=== PATIENT | male | born 1935 | race Caucasian/White ===

== ENCOUNTER 2019-07-23 05:41 | Emergency (ER) | payer MEDICARE, OTHER ==
[2019-07-23] MEDS ORDERED: Sodium Chloride 0.9% 1,000 ML IV SCH (06:30)
--- NOTE | 2019-07-23 06:32 | EDM.PDOC ---
ED HPI GENERAL MEDICAL PROBLEM - General Chief Complaint: Abdominal Pain Stated Complaint: RIGHT SIDE AND ABDOMINAL PAIN Time Seen by Provider: 07/23/19 05:51 Source of Information: Reports: Patient, Family () History Limitations: Reports: No Limitations - History of Present Illness INITIAL COMMENTS - FREE TEXT/NARRATIVE: Mr. Lowry is a very pleasant 83-year-old man with a past medical history significant for COPD and prostate cancer, status post a partial prostatectomy and radiation therapy. He states that he has been experiencing a burning pain felt across his lower abdomen on off for the past 3 days. He states that he has not been able to sleep for the past 2 nights because of the pain. The pain is present if he doesn't move, and relieved briefly if he does move. He has not had any fever, nausea, vomiting, or diarrhea. He states that he has felt constipated since 07/19/2019, but that he had a hard bowel movement yesterday. The bowel movement did not relieve his symptoms. He also has felt gassy, and feels brief relief if he belches or passes gas. His mentioned that his belches smell really bad. No urinary symptoms. The patient states that he still feels the pain across his lower abdomen, but that it became worse in his right lower quadrant last night. The pain in that location is now "solid" in character. That pain is also felt better if he moves. No prior similar symptoms. The patient's PCP is Dr. Andie Cullen, in [place], [place]. Abdominal Pain Score (Numeric/FACES): 7 - Related Data Allergies Allergy/AdvReac Type Severity Reaction Status Date / Time Penicillins Allergy Rash Verified 07/23/19 05:52 Home Meds: Home Meds Aspirin [Adult Low Dose Aspirin EC] 81 mg PO DAILY 07/23/19 [History] Atenolol 25 mg PO DAILY 07/23/19 [History] Budesonide/Formoterol [Symbicort 160-4.5 MCG] 2 inh IN BID 07/23/19 [History] Cholecalciferol (Vitamin D3) [Vitamin D3] 1,000 mg PO DAILY 07/23/19 [History] Donepezil HCl 10 mg PO DAILY 07/23/19 [History] Fluticasone Propionate [Flonase] 50 mcg RENEA DAILY 07/23/19 [History] Latanoprost [Xalatan 0.005% Ophth Soln] 1 drop EYELF BEDTIME 07/23/19 [History] Levothyroxine 112 mcg PO DAILY 07/23/19 [History] Memantine [Namenda] 10 mg PO DAILY 07/23/19 [History] Mirabegron [Myrbetriq] 50 mg PO DAILY 07/23/19 [History] Omeprazole Magnesium [Prilosec Otc] 20 mg PO BID 07/23/19 [History] Rifaximin [Xifaxan] 1 tab PO Q8H #42 tablet 07/23/19 [Rx] Simvastatin [Zocor] 40 mg PO BEDTIME 07/23/19 [History] Past Medical History Cardiovascular History: Reports: High Cholesterol, Hypertension Respiratory History: Reports: COPD (PFT-proven, on nightly O2 3L/NC) Gastrointestinal History: Reports: GERD Neurological History: Reports: Alzheimers Disease Psychiatric History: Reports: Depression Endocrine/Metabolic History: Reports: Hypothyroidism Oncologic (Cancer) History: Reports: Prostate (s/p partial prostatectomy, RTx), Squamous Cell Carcinoma (face, tongue, s/p excision) - Past Surgical History HEENT Surgical History: Reports: Adenoidectomy, Cataract Surgery (bilateral), Oral Surgery (wisdom teeth extraction), Tonsillectomy GI Surgical History: Reports: Hernia, Inguinal (right) Musculoskeletal Surgical History: Reports: Knee Replacement (right, partial) Oncologic Surgical History: Reports: Other (See Below) (Partial prostatectomy. SCC excised from face & tongue.) Social & Family History - Tobacco Use Smoking Status *Q: Former Smoker Years of Tobacco use: 51 Packs/Tins Daily: 1.5 Month/Year Tobacco Last Used: Quit around 1994 - Caffeine Use Caffeine Use: Reports: None - Alcohol Use Alcohol Use History: Yes Date/Time of Last Drink Comment: Alcoholic, in recovery since 1982 - Recreational Drug Use Recreational Drug Use: No - Living Situation & Occupation Living situation: Reports: , with Spouse Occupation: Retired ED ROS GENERAL - Review of Systems Review Of Systems: ROS reveals no pertinent complaints other than HPI. ED EXAM, GI/ABD - Physical Exam Exam: See Below Exam Limited By: No Limitations General Appearance: Alert, No Apparent Distress, Thin Eyes: Bilateral: Normal Appearance, EOMI Ears: Normal External Exam, Hearing Loss Nose: Normal Inspection Throat/Mouth: Normal Inspection, Normal Lips, Normal Voice, No Airway Compromise Head: Atraumatic, Normocephalic Neck: Normal Inspection, Full Range of Motion Respiratory/Chest: No Respiratory Distress, Lungs Clear, Normal Breath Sounds, No Accessory Muscle Use Cardiovascular: Normal Peripheral Pulses, Regular Rate, Rhythm, No Edema, No Gallop, No JVD, No Murmur, No Rub GI/Abdominal Exam: Normal Bowel Sounds (active), Soft, No Organomegaly, No Distention, No Abnormal Bruit, No Mass, Tender (To the right upper quadrant and epigastrium only. Nontender elsewhere.) (Male) Exam: Deferred Rectal (Males) Exam: Deferred Back Exam: Normal Inspection, Full Range of Motion. No: CVA Tenderness (L), CVA Tenderness (R) Extremities: Normal Inspection, Normal Range of Motion, No Pedal Edema, Normal Capillary Refill Neurological: Alert, Oriented, Normal Cognition, No Motor/Sensory Deficits Psychiatric: Normal Affect Skin Exam: Warm, Dry, Intact, Normal Color, No Rash Course - Vital Signs Last Recorded V/S: Last Vital Signs Temp 36.2 C 07/23/19 05:49 Pulse 61 07/23/19 05:49 Resp 19 07/23/19 05:49 BP 147/71 H 07/23/19 05:49 Pulse Ox 97 07/23/19 05:49 - Orders/Labs/Meds Orders: Active Orders 24 hr Category Date Time Status Bladder Scan [RC] ASDIRECTED Care 07/23/19 06:26 Active Abdomen Pelvis w Cont [CT] Stat Exams 07/23/19 06:25 Taken Sodium Chloride 0.9% [Normal Saline] 1,000 ml Med 07/23/19 06:30 Active IV ASDIRECTED Medication Orders Sodium Chloride (Normal Saline) 1,000 mls @ 150 mls/hr IV ASDIRECTED CHASIDY Last Admin: 07/23/19 06:36 Dose: 150 mls/hr Labs: Laboratory Tests 07/23/19 07/23/19 07/23/19 Range/Units 06:30 06:30 07:45 WBC 8.48 (4.23-9.07) K/mm3 RBC 4.70 (4.63-6.08) M/mm3 Hgb 14.5 (13.7-17.5) gm/dl Hct 42.1 (40.1-51.0) % MCV 89.6 (79.0-92.2) fl MCH 30.9 (25.7-32.2) pg MCHC 34.4 (32.2-35.5) g/dl RDW Std Deviation 41.4 (35.1-43.9) fL Plt Count 235 (163-337) K/mm3 MPV 9.2 L (9.4-12.3) fl Neutrophils % (Manual) 69 H (40-60) % Band Neutrophils % 0 (0-10) % Lymphocytes % (Manual) 21 (20-40) % Atypical Lymphs % 0 % Monocytes % (Manual) 10 (2-10) % Eosinophils % (Manual) 0 L (0.8-7.0) % Basophils % (Manual) 0 L (0.2-1.2) Platelet Estimate Adequate RBC Morph Comment Normal Sodium 144 (136-145) mEq/L Potassium 3.9 (3.5-5.1) mEq/L Chloride 110 H (98-107) mEq/L Carbon Dioxide 30 (21-32) mEq/L Anion Gap 7.9 (5-15) BUN 13 (7-18) mg/dL Creatinine 1.1 (0.7-1.3) mg/dL Est Cr Clr Drug Dosing 46.74 mL/min Estimated GFR (MDRD) > 60 (>60) mL/min BUN/Creatinine Ratio 11.8 L (14-18) Glucose 108 (83-115) mg/dL Calcium 8.8 (8.5-10.1) mg/dL Total Bilirubin 0.9 (0.2-1.0) mg/dL AST 16 (15-37) U/L ALT 18 (16-63) U/L Alkaline Phosphatase 67 (46-116) U/L Total Protein 6.4 (6.4-8.2) g/dl Albumin 3.1 L (3.4-5.0) g/dl Globulin 3.3 gm/dL Albumin/Globulin Ratio 0.9 L (1-2) Lipase 216 (73-393) U/L Urine Color Dark yellow (Yellow) Urine Appearance Clear (Clear) Urine pH 8.5 H (5.0-8.0) Ur Specific [place] 1.015 (1.005-1.030) Urine Protein 1+ H (Negative) Urine Glucose (UA) Negative (Negative) Urine Ketones Trace H (Negative) Urine Occult Blood Trace-intact H (Negative) Urine Nitrite Negative (Negative) Urine Bilirubin 1+ H (Negative) Urine Urobilinogen >=8.0 H (0.2-1.0) Ur Leukocyte Esterase Negative (Negative) Urine RBC 5-10 H (0-5) /hpf Urine WBC 0-5 (0-5) /hpf Ur Squamous Epith Cells 0-5 (0-5) /hpf Urine Bacteria Few (FEW) /hpf Hyaline Casts 0-5 (0-5) /lpf Urine Mucus Moderate H (FEW) /hpf Meds: Medications Generic Name Dose Route Start Last Admin Trade Name Freq PRN Reason Stop Dose Admin Sodium Chloride 1,000 mls @ 150 mls/hr 07/23/19 06:30 07/23/19 06:36 Normal Saline IV 150 mls/hr ASDIRECTED CHASIDY Administration Discontinued Medications Generic Name Dose Route Start Last Admin Trade Name Freq PRN Reason Stop Dose Admin Diatrizoate Meglum/Diatrizoate Sod 90 ml 07/23/19 07:38 07/23/19 07:57 Gastrografin 37% PO 07/23/19 07:39 90 ml ONETIME ONE Administration Iopamidol 100 ml 07/23/19 07:38 07/23/19 07:57 Isovue-300 (61%) IVPUSH 07/23/19 07:39 100 ml ONETIME ONE Administration Sodium Chloride 10 ml 07/23/19 07:38 07/23/19 07:57 Saline Flush FLUSH 07/23/19 07:39 10 ml ONETIME ONE Administration - Re-Assessments/Exams Free Text/Narrative Re-Assessment/Exam: 07/23/19 06:27 The cause of the patient's abdominal pain is not clear. As per the HPI, he has had burning pain felt across his lower abdomen for the past 3 days, then developed right lower quadrant "solid" pain last night, but on examination, he is tender only in the right upper quadrant and epigastrium, not in the lower abdomen, at all. His bowel sounds are active, and he reports feeling gassy, getting relief with belching or passing gas. No flank pain, and no CVA tenderness on exam. I have ordered a workup that includes blood work, a urinalyis, and a CT scan of hs abdomen and pelvis with oral and IV contrast. After the patient voids completely, we will check a bladder scan. The patient declined an offer for pain medication, and he denies feeling nauseated, but I have ordered IV fluid. 07/23/19 08:37 The patient's CBC is unremarkable. His CMP is remarkable for a chloride slightly elevated at 110, and is otherwise unremarkable. His lipase level is within normal limits at 216. His urinalysis is remarkable for trace occult blood and 5-10 RBCs, 1+ bilirubin , and > 8.0 urobilinogen. Post-void bladder scan volume is [address] of the abdomen and pelvis with oral and IV contrast is read by [facility] as: 1. Mild nonspecific gallbladder wall thickening. 2. Mild pancreatic head and peripancreatic edema suggested. Mild acute pancreatitis is difficult to exclude. Serologic correlation recommended. 3. Diverticulosis. 4. Small hiatal hernia. With respect the patient's CT results, he does have some tenderness to the right upper quadrant, therefore I think an ultrasound of the right upper quadrant, and, possibly, a HIDA scan, are indicated. He has epigastric tenderness, but his lipase is not elevated, therefore pancreatitis is highly unlikely. The patient's serum bilirubin is within normal limits at 0.9. An elevated urobilinogen can occur in cases of hemolysis, however, the patient is not anemic , and in cirrhosis or hepatitis, however, the patient's LFTs are within normal limits. In this case, it is concerning for bacterial overgrowth of the small intestine, although it could be due to constipation. The patient reports a recent history of constipation, although the CT report does not indicate any. In addition, the patient's presentation, including feeling gassy and flatulent with malodorous belches and abdominal discomfort, is consistent with the clinical presentation of bacterial overgrowth. 07/23/19 09:17 Test results discussed with the patient and his . I am recommending treatment for small intestinal bacterial overgrowth with rifaximin 550 mg po TID x 14 days, as well as an outpatient evaluation of his gallbladder that should include an ultrasound of the right upper quadrant and a possible HIDA scan. The patient mentioned [facility], therefore he will need to make arrangements through them. Departure - Departure Time of Disposition: 09:20 Disposition: Home, Self-Care 01 Condition: Good Clinical Impression: Small intestinal bacterial overgrowth - Discharge Information *PRESCRIPTION DRUG MONITORING PROGRAM REVIEWED*: Not Applicable *COPY OF PRESCRIPTION DRUG MONITORING REPORT IN PATIENT KELSI: Not Applicable Prescriptions: Rifaximin [Xifaxan] 1 tab PO Q8H #42 tablet Referrals: Lisa Song MD [Primary Care Provider] - Forms: ED Department Discharge Additional Instructions: You were seen in the emergency room for 3 days of lower abdominal pain that localized to your lower right abdomen, along with feeling gassy. Workup in the ER included blood work, a urinalysis, a postvoid bladder scan, and a CT scan of your abdomen and pelvis. Your blood work was unremarkable, but your urine showed a high level of urobilinogen. Your CT scan showed possible inflammation of your gallbladder. It also showed possible inflammation of your pancreas, although your pancreas enzyme was not elevated. Based on your history, physical exam, and ER tests, we suspect that you are suffering from small intestinal bacterial overgrowth. You have been prescribed the antibiotic rifaximin. Take one tablet of rifaximin every 8 hours, for 2 weeks, as prescribed. We also recommend that you arrange to have an outpatient evaluation of your gallbladder, that should include an ultrasound of your gallbladder, and, possibly, a HIDA scan. Please follow-up with your PCP at the [facility] to make these arrangements. If any other problems, please do not hesitate to return to the ER. - My Orders Last 24 Hours: My Active Orders 07/23/19 06:25 Abdomen Pelvis w Cont [CT] Stat 07/23/19 06:26 Bladder Scan [RC] ASDIRECTED 07/23/19 06:30 Sodium Chloride 0.9% [Normal Saline] 1,000 ml IV ASDIRECTED - Assessment/Plan Last 24 Hours: My Active Orders 07/23/19 06:25 Abdomen Pelvis w Cont [CT] Stat 07/23/19 06:26 Bladder Scan [RC] ASDIRECTED 07/23/19 06:30 Sodium Chloride 0.9% [Normal Saline] 1,000 ml IV ASDIRECTED
[2019-07-23] MEDS ORDERED: Sodium Chloride 0.9% 10 ML Syringe FLUSH ONE (07:38)
[2019-07-23] MEDS ORDERED: Iopamidol 612 MG/ML 100 ML Bottle IVPUSH ONE (07:38)
[2019-07-23] MEDS ORDERED: Diatrizoate Meglumine/Diatrizoate Sodium 37% 120 ML Bottle PO ONE (07:38)
--- NOTE | 2019-07-25 08:09 | CT ---
CT abdomen and pelvis Technique: Multiple axial sections were obtained from above the dome of the diaphragm inferiorly through the pubic symphysis. Intravenous and oral contrast was utilized. Delayed images were obtained through the bladder. Comparison: No prior abdominal imaging is available. Findings: Interstitial fibrosis with several air cysts being seen within the right lung base. Emphysematous change is present. Liver shows no focal parenchymal abnormality. Gallbladder contains no calcified gallstones. Gallbladder wall shows several areas of slight thickening believed to be artifact. Spleen appears within normal limits. Small hiatal hernia is noted. Adrenal glands show no nodule. Slight haziness is seen around the pancreatic head raising the possibility of possible mild pancreatitis. No abnormality is seen within the pancreas. Adrenal glands show no nodule. Kidneys show symmetric contrast enhancement without hydronephrosis or mass. Aorta shows atherosclerotic change without aneurysm. No retroperitoneal adenopathy or mesenteric abnormalities are seen. Numerous diverticuli are seen within the descending and sigmoid colon with no inflammatory change of diverticulitis. Fat-containing left inguinal hernia is noted. Appendix not visualized with certainty. No free fluid is seen. Delayed images show contrast within the distal ureters and bladder. Contrast is also seen within the bladder. Bone window settings were reviewed which show disc protrusion into the superior endplate of S1 as well as disc space narrowing at L3-L4 and L4-L5 and posteriorly at L5-S1. Posterior disc space narrowing also noted at L2-3. Degenerative apophyseal change is noted within the lower lumbar spine. Impression: 1. Equivocal pancreatitis. Please correlate if there are any correlating laboratory findings or clinical symptoms. 2. Other findings believed to be incidental as described above. Nothing acute is otherwise seen on CT study of the abdomen and pelvis. Diagnostic code #3 I agree with preliminary report from [facility], finalized on 07/23/19, 9:28 AM Central Time
== END 2019-07-23 09:35 | disposition home or self-care (01) ==
LOC: JD.ED 05:41
DX: A04.9 Bacterial intestinal infection, unspecified (principal); J44.9 Chronic obstructive pulmonary disease, unspecified; E78.00 Pure hypercholesterolemia, unspecified; I10 Essential (primary) hypertension; G30.9 Alzheimer's disease, unspecified; F02.80 Dementia in other diseases classified elsewhere, unspecified severity, without behavioral disturbance, psychotic disturbance, mood disturbance, and anxiety; K21.9 Gastro-esophageal reflux disease without esophagitis; E03.9 Hypothyroidism, unspecified; Z79.899 Other long term (current) drug therapy; Z79.51 Long term (current) use of inhaled steroids; Z79.890 Hormone replacement therapy; Z85.46 Personal history of malignant neoplasm of prostate; Z88.0 Allergy status to penicillin; Z87.891 Personal history of nicotine dependence; Z79.82 Long term (current) use of aspirin
CPT/HCPCS: 36415; 51798; 74177; 80053; 81001; 83690; 85007; 85027; 96360; 96361; 99284; J7040; Q9963; Q9967; 99283

== ENCOUNTER 2021-03-11 09:49 | Emergency (ER) | payer OTHER ==
[2021-03-11] MEDS ORDERED: Sodium Chloride 0.9% 1,000 ML IV SCH (10:00)
--- NOTE | 2021-03-11 10:05 | EDM.PDOC ---
ED HPI GENERAL MEDICAL PROBLEM - General Chief Complaint: Neuro Symptoms/Deficits Stated Complaint: STROKE SX Time Seen by Provider: 03/11/21 09:54 Source of Information: Reports: Patient History Limitations: Reports: No Limitations - History of Present Illness INITIAL COMMENTS - FREE TEXT/NARRATIVE: Stroke alert was called on this patient. 85-year-old male presents to the ED with family members although they are not in the department at present. History obtained from the patient indicates that he has been feeling weak and off balance for about a week. Denies any falls or close head injuries. Mild headache. He states he thinks he is listing more to the right side. States his right leg does not seem to listen to his brain. He is dragging his left foot at times. He does not have any past history of CVA. He is no known history of atrial fibrillation. Denies any nausea or vomiting. Bowel and bladder function are normal. No trouble swallowing. Denies any visual acuity changes. He denies any falls at home. Does have elevated cholesterol and is on atorvastatin. He does have mild hypertension. Onset: Sudden Onset Date: 03/11/21 Duration: Day(s):, Constant Location: Reports: Generalized ( Feels he is dragging his right foot at times as well.) Quality: Reports: Other Severity: Moderate (Weakness right side.) Improves with: Reports: None Worsens with: Reports: Other Context: Denies: Activity, Exercise (With any prolonged walking.), Lifting, Sick Contact, Trauma, Other (Spontaneous occurrence about a week ago.) Treatments [employer]: Reports: Other (see below) (None.) - Related Data Allergies Allergy/AdvReac Type Severity Reaction Status Date / Time Penicillins Allergy Rash Verified 03/11/21 09:54 terazosin Allergy Other Verified 03/11/21 10:50 Home Meds: Home Meds Aspirin [Adult Low Dose Aspirin EC] 81 mg PO DAILY 07/23/19 [History] Budesonide/Formoterol [Symbicort 160-4.5 MCG] 2 inh IN BID 07/23/19 [History] Cholecalciferol (Vitamin D3) [Vitamin D3] 1,000 mg PO DAILY 07/23/19 [History] Donepezil HCl 10 mg PO DAILY 07/23/19 [History] Fluticasone Propionate [Flonase] 50 mcg RENEA DAILY 07/23/19 [History] Latanoprost [Xalatan 0.005% Ophth Soln] 1 drop EYEBOTH BEDTIME 07/23/19 [History] Levothyroxine 112 mcg PO DAILY 07/23/19 [History] Memantine [Namenda] 10 mg PO BID 07/23/19 [History] Mirabegron [Myrbetriq] 50 mg PO DAILY 07/23/19 [History] Omeprazole Magnesium [Prilosec Otc] 20 mg PO DAILY 07/23/19 [History] Simvastatin [Zocor] 40 mg PO BEDTIME 07/23/19 [History] atenoloL [Atenolol] 25 mg PO DAILY 07/23/19 [History] Albuterol [Ventolin HFA] 2 puff INH Q6H PRN 03/11/21 [History] Cefdinir [Omnicef] 300 mg PO BID #16 cap 03/11/21 [Rx] Tamsulosin [Tamsulosin 24 Hr] 0.4 mg PO DAILY 03/11/21 [History] Past Medical History Cardiovascular History: Reports: High Cholesterol, Hypertension Respiratory History: Reports: COPD (PFT-proven, on nightly O2 3L/NC) Gastrointestinal History: Reports: GERD Neurological History: Reports: Alzheimers Disease Psychiatric History: Reports: Depression Endocrine/Metabolic History: Reports: Hypothyroidism Oncologic (Cancer) History: Reports: Prostate (s/p partial prostatectomy, RTx patient was treated with high beam radiation to his prostate x25 treatments. He did not have any problems with radiation-induced proctitis or diarrhea), Squamous Cell Carcinoma (face, tongue, s/p excision) - Past Surgical History HEENT Surgical History: Reports: Adenoidectomy, Cataract Surgery (bilateral), Oral Surgery (wisdom teeth extraction), Tonsillectomy GI Surgical History: Reports: Hernia, Inguinal (right) Musculoskeletal Surgical History: Reports: Knee Replacement (right, partial) Oncologic Surgical History: Reports: Other (See Below) (Partial prostatectomy. SCC excised from face & tongue.) Social & Family History - Caffeine Use Caffeine Use: Reports: None - Living Situation & Occupation Living situation: Reports: , with Spouse Occupation: Retired ED ROS GENERAL - Review of Systems Review Of Systems: See Below Constitutional: Reports: Weakness (He thinks more in his right side than), Fatigue ( on the left.). Denies: Fever, Chills, Malaise HEENT: Reports: Glasses Respiratory: Reports: Shortness of Breath, Wheezing. Denies: Pleuritic Chest Pain, Cough (Occasionally.), Sputum Cardiovascular: Reports: Blood Pressure Problem, Dyspnea on Exertion. Denies: Chest Pain, Claudication, Edema, Lightheadedness, Orthopnea Endocrine: Reports: Fatigue GI/Abdominal: Reports: Constipation : Reports: Frequency, Other (Nocturia x2-3) Musculoskeletal: Reports: Neck Pain, Shoulder Pain, Back Pain, Joint Pain Skin: Reports: No Symptoms (Knees and hips at times.) Neurological: Reports: Dizziness (Feels offkilter with walking.), Difficulty Walking (Difficulty walking this last week where he feels he is listing to the right side and has to hang onto things. So far has not been using a walker or cane.), Weakness (Illness he is weak on his right side as compared to his left), Gait Disturbance, Other. Denies: Confusion, Headache, Numbness, Syncope, Tingling, Trouble Speaking Psychiatric: Reports: No Symptoms (No trouble swallowing) Hematologic/Lymphatic: Reports: No Symptoms Immunologic: Reports: No Symptoms ED EXAM, NEURO - Physical Exam Exam: See Below Exam Limited By: No Limitations General Appearance: Alert, WD/WN, No Apparent Distress, Other (Temperature is 36.8 degrees. Heart rate is 64 and sinus respiratory 16 with O2 sats of 99% room air BP minimally elevated 150/73.) Eye Exam: Bilateral Eye: Normal Inspection (No scleral icterus or blepharal pallor.), PERRL (No gaze palsy) Throat/Mouth: Normal Inspection, Normal Lips, Normal Oropharynx Head Exam: Atraumatic, Normocephalic Neck: Normal Inspection, Supple, Non-Tender, Full Range of Motion. No: Carotid Bruit, Lymphadenopathy (L), Lymphadenopathy (R) Respiratory/Chest: No Respiratory Distress, Lungs Clear, No Accessory Muscle Use, Decreased Breath Sounds. No: Rhonchi, Wheezing Cardiovascular: Regular Rate, Rhythm, No Edema, No Gallop, No Murmur, No Rub. No: Normal Peripheral Pulses GI/Abdominal: Normal Bowel Sounds, Soft, Non-Tender, No Organomegaly, No Abnormal Bruit, No Mass, Pelvis Stable Neurological: Alert, Normal Mood/Affect, Normal Dorsiflexion, CN II-XII Intact, Oriented x 3. No: Normal Plantar Flexion, Normal Gait, Normal Reflexes DTR: 0: Achilles (R), Achilles (L), 1+: Bicep (R), Bicep (L), Patella (R), Patella (L) Back Exam: Normal Inspection. No: Full Range of Motion, CVA Tenderness (L), CVA Tenderness (R) Extremities: Normal Inspection, Normal Range of Motion, Non-Tender, No Pedal Edema Psychiatric: Normal Affect, Normal Mood Skin Exam: Warm, Dry, Intact, Normal Color, No Rash #1 Interpretation EKG Date: 03/11/21 Time: 09:58 Rhythm: Other (Sinus bradycardia) Rate (Beats/Min): 46 [place]: LAD-Left [place] Deviation (-48 degrees left anterior fascicular block pattern) P-Wave: Present QRS: Other (Q waves noted in leads V2 and V3 compared with old anteroseptal myocardial infarction. There is decreased voltage throughout the precordial leads.) ST-T: Other (Nonspecific T wave flattening in multiple leads i.e. leads I, 2, 3, aVR, aVL, aVF and leads V6. Consider metabolic abnormality.) QT: Prolonged (Markedly prolonged) EKG Interpretation Comments: Abnormal ECG Course - Vital Signs Last Recorded V/S: Last Vital Signs Temp 36.8 C 03/11/21 09:54 Pulse 64 03/11/21 09:54 Resp 16 03/11/21 09:54 BP 150/73 H 03/11/21 09:54 Pulse Ox 99 03/11/21 09:54 - Orders/Labs/Meds Labs: Laboratory Tests 03/11/21 03/11/21 03/11/21 Range/Units 09:52 10:03 10:03 WBC 13.17 H (4.23-9.07) K/mm3 RBC 4.78 (4.63-6.08) M/mm3 Hgb 14.8 (13.7-17.5) gm/dl Hct 44.0 (40.1-51.0) % MCV 92.1 (79.0-92.2) fl MCH 31.0 (25.7-32.2) pg MCHC 33.6 (32.2-35.5) g/dl RDW Std Deviation 43.5 (35.1-43.9) fL Plt Count 240 (163-337) K/mm3 MPV 9.7 (9.4-12.3) fl Neut % (Auto) 85.3 H (34.0-67.9) % Lymph % (Auto) 8.0 L (21.8-53.1) % [place] % (Auto) 6.5 (5.3-12.2) % Eos % (Auto) 0 L (0.8-7.0) Baso % (Auto) 0.0 L (0.1-1.2) % Neut # (Auto) 11.24 H (1.78-5.38) K/mm3 Lymph # (Auto) 1.06 L (1.32-3.57) K/mm3 [place] # (Auto) 0.85 H (0.30-0.82) K/mm3 Eos # (Auto) 0.00 L (0.04-0.54) K/mm3 Baso # (Auto) 0.00 L (0.01-0.08) K/mm3 Manual Slide Review Abnormal smear PT 11.7 (9.7-12.0) SECONDS INR 1.10 APTT 25.7 (21.7-31.4) SECONDS Sodium (136-145) mEq/L Potassium (3.5-5.1) mEq/L Chloride (98-107) mEq/L Carbon Dioxide (21-32) mEq/L Anion Gap (5-15) BUN (7-18) mg/dL Creatinine (0.7-1.3) mg/dL Est Cr Clr Drug Dosing Estimated GFR (MDRD) (>60) mL/min BUN/Creatinine Ratio (14-18) Glucose (70-99) mg/dL POC Glucose 95 (70-99) mg/dL Calcium (8.5-10.1) mg/dL Magnesium (1.8-2.4) mg/dL Total Bilirubin (0.2-1.0) mg/dL AST (15-37) U/L ALT (16-63) U/L Alkaline Phosphatase (46-116) U/L Troponin I (0.00-0.056) ng/mL C-Reactive Protein (<1.0) mg/dL NT-Pro-B Natriuret Pep (0-450) pg/mL Total Protein (6.4-8.2) g/dl Albumin (3.4-5.0) g/dl Globulin gm/dL Albumin/Globulin Ratio (1-2) Cholesterol (<200) mg/dL LDL Cholesterol Direct (<100) mg/dL HDL Cholesterol (40-59) mg/dL Urine Color (Yellow) Urine Appearance (Clear) Urine pH (5.0-8.0) Ur Specific [place] (1.005-1.030) Urine Protein (Negative) Urine Glucose (UA) (Negative) Urine Ketones (Negative) Urine Occult Blood (Negative) Urine Nitrite (Negative) Urine Bilirubin (Negative) Urine Urobilinogen (0.2-1.0) Ur Leukocyte Esterase (Negative) Urine RBC (0-5) /hpf Urine WBC (0-5) /hpf Ur Epithelial Cells (0-5) /hpf Urine Bacteria (FEW) /hpf Urine Mucus (FEW) /hpf 03/11/21 03/11/21 03/11/21 Range/Units 10:03 10:03 11:55 WBC (4.23-9.07) K/mm3 RBC (4.63-6.08) M/mm3 Hgb (13.7-17.5) gm/dl Hct (40.1-51.0) % MCV (79.0-92.2) fl MCH (25.7-32.2) pg MCHC (32.2-35.5) g/dl RDW Std Deviation (35.1-43.9) fL Plt Count (163-337) K/mm3 MPV (9.4-12.3) fl Neut % (Auto) (34.0-67.9) % Lymph % (Auto) (21.8-53.1) % [place] % (Auto) (5.3-12.2) % Eos % (Auto) (0.8-7.0) Baso % (Auto) (0.1-1.2) % Neut # (Auto) (1.78-5.38) K/mm3 Lymph # (Auto) (1.32-3.57) K/mm3 [place] # (Auto) (0.30-0.82) K/mm3 Eos # (Auto) (0.04-0.54) K/mm3 Baso # (Auto) (0.01-0.08) K/mm3 Manual Slide Review PT (9.7-12.0) SECONDS INR APTT (21.7-31.4) SECONDS Sodium 145 (136-145) mEq/L Potassium 4.0 (3.5-5.1) mEq/L Chloride 107 (98-107) mEq/L Carbon Dioxide 28 (21-32) mEq/L Anion Gap 14.0 (5-15) BUN 23 H (7-18) mg/dL Creatinine 1.1 (0.7-1.3) mg/dL Est Cr Clr Drug Dosing TNP Estimated GFR (MDRD) > 60 (>60) mL/min BUN/Creatinine Ratio 20.9 H (14-18) Glucose 117 H (70-99) mg/dL POC Glucose (70-99) mg/dL Calcium 8.7 (8.5-10.1) mg/dL Magnesium 1.8 (1.8-2.4) mg/dL Total Bilirubin 1.0 (0.2-1.0) mg/dL AST 11 L (15-37) U/L ALT 26 (16-63) U/L Alkaline Phosphatase 64 (46-116) U/L Troponin I < 0.017 (0.00-0.056) ng/mL C-Reactive Protein <0.2 (<1.0) mg/dL NT-Pro-B Natriuret Pep 1090 H (0-450) pg/mL Total Protein 6.3 L (6.4-8.2) g/dl Albumin 3.3 L (3.4-5.0) g/dl Globulin 3.0 gm/dL Albumin/Globulin Ratio 1.1 (1-2) Cholesterol 154 (<200) mg/dL LDL Cholesterol Direct 92 (<100) mg/dL HDL Cholesterol 53.0 (40-59) mg/dL Urine Color Yellow (Yellow) Urine Appearance Clear (Clear) Urine pH 6.5 (5.0-8.0) Ur Specific [place] > or = 1.030 (1.005-1.030) Urine Protein Negative (Negative) Urine Glucose (UA) Negative (Negative) Urine Ketones Negative (Negative) Urine Occult Blood Negative (Negative) Urine Nitrite Negative (Negative) Urine Bilirubin Negative (Negative) Urine Urobilinogen 1.0 (0.2-1.0) Ur Leukocyte Esterase Negative (Negative) Urine RBC >100 H (0-5) /hpf Urine WBC 0-5 (0-5) /hpf Ur Epithelial Cells 0-5 (0-5) /hpf Urine Bacteria Moderate H (FEW) /hpf Urine Mucus Not seen (FEW) /hpf Meds: Medications Discontinued Medications Generic Name Dose Route Start Last Admin Trade Name Freq PRN Reason Stop Dose Admin Acetaminophen 650 mg 03/11/21 11:49 03/11/21 12:12 Acetaminophen 325 Mg Tab PO 03/11/21 11:50 650 mg ONETIME ONE Administration Sodium Chloride 1,000 mls @ 100 mls/hr 03/11/21 10:00 03/11/21 11:18 Normal Saline IV 100 mls/hr ASDIRECTED CHASIDY Administration Iopamidol 100 ml 03/11/21 13:19 03/11/21 13:23 Iopamidol 612 Mg/Ml 100 Ml Bottle IVPUSH 03/11/21 13:20 100 ml ONETIME ONE Administration Sodium Chloride 10 ml 03/11/21 13:19 03/11/21 13:23 Sodium Chloride 0.9% 10 Ml Syringe FLUSH 10 ml ONETIME PRN Administration IV FLUSH - Radiology Interpretation Free Text/Narrative:: 85-year-old male presents to the ED for evaluation of right-sided weakness for the last week. Last known well time was over a week ago.He has no history of a fall recently. No head injury. No past history of CVA. Known to have mild hypertension and hypercholesterolemia for which she is being treated. Vital signs are stable on initial evaluation. 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 No ataxia on [id number]. No pronator drift. - Re-Assessments/Exams Free Text/Narrative Re-Assessment/Exam: 03/11/21 10:35: Chest x-ray done portably reveals heart size and mediastinum to be normal. Slight atelectasis is appreciated within the right lung base. Lungs otherwise are clear. Bony structures show nothing acute. CT of the head reveals ventricles along with the basal cisterns and sulci over the convexities to be mildly prominent. Diminished density is noted within the periventricular and subcortical white matter which is compatible with small vessel ischemic demyelination change. No other abnormal parenchymal densities are seen. No evidence of intracranial hemorrhage. No midline shift or mass-effect identified. Atherosclerotic calcification is seen within the vertebral vessels and the carotid siphon. Visualized mastoid sinuses show nothing acute. Visualized paranasal sinuses show nothing acute. No acute calvarial abnormality is appreciated. 03/11/21 11:02 White count is mildly elevated at 13.17. There is a left shift with 85.3% neutrophils. Hemoglobin is 14.8 with hematocrit of 44.0. Platelet count 240,000. The smear reveals neutrophilia, lymphopenia with no bands present. Sodium 145 with a potassium of 4.0. Chloride 107 with a bicarb of 28. Anion gap is 14.0. BUN is 23 with a creatinine of 1.1 and a GFR greater than 60. Glucose is 117. Bedside glucose was 95. Calcium is 8.7 with a magnesium of 1.8. Liver function is otherwise normal. Troponin I is less than 0.017. C- reactive protein less than 0.2. BNP is elevated at 1090. Total protein 6.3 with an albumin fraction of 3.3. Cholesterol is 154 with an LDL of 92 and HDL of 53.0 03/11/21 11:48 both with the patient and his sisters whom he lives with one of them. They indicate this morning when he got up he seemed to be okay but shortly thereafter seem to develop right-sided weakness difficulty walking and dysarthria. Possible TIA is entertained but on my examination I cannot identify any significant weakness of either the leg or the right arm. He is alert oriented and very minimally dysarthric at this time. He seems alert. I will road test him later in terms of walking in the halls. He does have an elevated white count and clinically does have a low-grade fever. I am going to have the nurses give him Tylenol. I waiting for a urine specimen. 03/11/21 12:35 Urinalysis reveals no negative leukocyte esterase but greater than 100 RBCs per high-power field. Moderate bacteria appreciated. 03/11/21 12:35 CT of the abdomen pelvis will be performed due to the large amount of RBCs in the urine. This is concerning for possible underlying malignancy of the kidney or ureter. Also possibly the urinary bladder. 03/11/21 13:30 debrided the necrotic tissue from the surface of the wound. I cleaned up the edges. The soft tissue which is mostly adipose tissue overlying the anterior tibia is squishy and I believe infected. Bone is not visible. I will consult physical therapy to see what they would use to cover this wound as it is going to be 6 to 9 months to heal. Patient will be given Rocephin 2 g IV now pack. Plan will be to start him on doxycycline 100 mg twice daily for the next 3 weeks. 03/11/21 13:32 we looked at his [place] notes. His last GFR was reportedly 33. He has not had much to drink today. He is receiving IV fluids. 03/11/21 13:56 CT abdomen pelvis completed with IV contrast only. Visualized lung bases show emphysematous changes and scarring. Liver shows no focal parenchymal abnormality. Small hiatal hernia is evident. Spleen is within normal limits. Adrenal glands show no nodules. Pancreas shows no acute abnormality. Surgical clips are noted from prior cholecystectomy. Kidneys show symmetric contrast enhancement. 1.1 cm low-density finding is seen within the mid to upper left kidney I believe this is most likely due to 2 small adjacent cyst. Ureters on delayed images are well seen and showed no signs of obstruction or other abnormalities. Contrast is noted within the urinary bladder. Bladder wall is slightly thickened but is not well distended which is believed to be age- related. Abdominal aorta shows atherosclerotic change which continues into the iliac vessels. No aneurysm is seen. No retroperitoneal adenopathy or mesenteric abnormalities are seen. Appendix is seen which is normal in size. No pelvic mass or adenopathy is seen. Small fat-containing left inguinal hernia is noted. Bone window settings were reviewed which show scattered degenerative changes within the spine which appears fairly stable from prior CT exam. Degenerative changes also noted within both hips. No reason for the gross hematuria on urinalysis was identified. 03/11/21 14:28 He still feels warm to palpation and I am concerned that he has an occult infection probably in his lungs. He is allergic to penicillin. I am going to place him therefore on Levaquin 500 mg once daily for the next 8 days to clear up any infection. I cannot be sure that he did not suffer a TIA earlier today. He states he was having difficulty walking he was off balance but in the hallway he is walking to the bathroom here normally without assistance. There was no evidence of a remote CVA on CT scan of the brain today. I will have him follow-up with his personal care physician towards the end of next week. I am going to place him on Omnicef 300 mg twice daily for the next 8 days. Patient reports he is allergic to penicillin but cannot remember what happened to him as it was greater than 30 years or 40 years ago. Departure - Departure Time of Disposition: 14:29 Disposition: Home, Self-Care 01 Condition: Fair Clinical Impression: Transient weakness of right lower extremity, Dizziness of unknown cause, Febrile illness - Discharge Information *PRESCRIPTION DRUG MONITORING PROGRAM REVIEWED*: Not Applicable *COPY OF PRESCRIPTION DRUG MONITORING REPORT IN PATIENT KELSI: Not Applicable Prescriptions: Cefdinir [Omnicef] 300 mg PO BID #16 cap Instructions: Dizziness, [id number] Referrals: PCP,Not In Area [Primary Care Provider] - Forms: ED Department Discharge Additional Instructions: Evaluation in the emergency room today in regards to onset of weakness associate with dizziness. You felt the weakness was primarily on the right side which made it very difficult for you to walk. In the emergency room I could not identify any definitive weakness on the right side as compared to the left. CT scan of the brain also does not reveal any signs of a stroke in the past or today. If similar if symptoms occur again you need to be seen again as soon as possible. While in the emergency room identified that lab work showed a mild increase in your white blood cell count so suggesting you are fighting off a low-grade infection. The source of this infection is unclear. Chest x-ray did not show any signs of pneumonia. The urinary tract showed a lot of red blood cells but no signs of any white blood cells to suggest infection. CT scan of the abdomen was done to make sure there was no other source for infection and none was found. The kidneys and ureters also did not show any sign of cancer or tumor to account for the large amount of red cells in your urine. It appears that this is most likely coming from the back wall of your bladder probably since radiation to your prostate gland several years ago. Due to persistent fever I am going to place you on antibiotic Omnicef 300 mg twice daily for the next 8 days to clear up infection which may be hiding in your lung and not yet showing itself with potential to developing pneumonia. Continue Tylenol 650 mg every 6 hours as needed for pain relief. Suggest follow-up with personal care physician towards the end of next week particularly your continue to have sciatica in your lower extremity on the right side. Trial of gabapentin may help relieve some of this pain. Sepsis Event Note (ED) - Focused Exam Vital Signs: Vital Signs Temp Pulse Resp BP Pulse Ox 03/11/21 09:54 36.8 C 64 16 150/73 H 99
--- NOTE | 2021-03-11 10:28 | CT ---
Head CT Technique: Multiple axial sections through the brain were obtained. Intravenous contrast was not utilized. Reconstructed coronal and sagittal images were obtained. Comparison: No prior intracranial imaging is available. Findings: Ventricles along with basal cisterns and sulci over the convexities are moderately prominent. Diminished density is noted within the periventricular and subcortical white matter which is compatible with small vessel ischemic demyelination change. No other abnormal parenchymal densities are seen. No evidence of intracranial hemorrhage. No midline shift or mass-effect is seen. Atherosclerotic calcification is seen within the vertebral vessels and carotid siphon. Visualized mastoid sinuses show nothing acute. Visualized paranasal sinuses show nothing acute. No acute calvarial abnormality is appreciated. Impression: 1. Senescent change as noted above. 2. No acute intracranial abnormality is appreciated. Note: If patient has sufficient symptoms, brain MRI could be obtained. Diagnostic code #2
--- NOTE | 2021-03-11 10:28 | CR ---
Chest: Portable view of the chest was obtained. Comparison: Prior chest x-ray of 06/18/13. Heart size and mediastinum are normal. Slight atelectasis is noted within the right lung base. Lungs otherwise are clear. Bony structures show nothing acute. Impression: 1. Mild right basilar atelectasis. 2. Nothing acute is otherwise seen on portable chest x-ray. Diagnostic code #2
[2021-03-11] MEDS ORDERED: Acetaminophen 325 MG Tab PO ONE (11:49)
[2021-03-11] MEDS ORDERED: Sodium Chloride 0.9% 10 ML Syringe FLUSH PRN (13:19)
[2021-03-11] MEDS ORDERED: Iopamidol 612 MG/ML 100 ML Bottle IVPUSH ONE (13:19)
--- NOTE | 2021-03-11 13:49 | CT ---
CT abdomen and pelvis Technique: Multiple axial sections were obtained from above the dome of the diaphragm inferiorly through the pubic symphysis. Intravenous contrast was utilized. No oral contrast has been given. Delayed images were also obtained through the abdomen and pelvis. Reconstructed coronal and sagittal images were obtained. Comparison: Prior CT abdomen and pelvis study of 07/23/19. Findings: Visualized lung bases show emphysematous changes and scarring. Liver shows no focal parenchymal abnormality. Small hiatal hernia is noted. Spleen is within normal limits. Adrenal glands show no nodule. Pancreas shows no acute abnormality. Surgical clips are noted from prior cholecystectomy. Kidneys show symmetric contrast enhancement. 1.1 cm low density finding is seen within the mid to upper left kidney. I believe this is most likely due to two small adjacent cysts. Ureters on delayed images are well seen and show no obstruction or other abnormality. Contrast is noted within the bladder. Bladder wall is slightly thickened but is not well distended which is believed to be age related. Abdominal aorta shows atherosclerotic change which continues into the iliac vessels. No aneurysm is seen. No retroperitoneal adenopathy or mesenteric abnormalities are seen. Appendix is seen which is normal in size. No pelvic mass or adenopathy is seen. Small fat-containing left inguinal hernia is noted. Bone window settings were reviewed which show scattered degenerative change within the spine which appears fairly stable from prior CT exam. Degenerative change is also noted within both hips. Impression: 1. Numerous findings as noted above. 2. Nothing acute is definitely appreciated on CT study of the abdomen and pelvis. Diagnostic code #2
== END 2021-03-11 14:55 | disposition home or self-care (01) ==
LOC: JD.ED 09:49
DX: M62.81 Muscle weakness (generalized) (principal); R42 Dizziness and giddiness; R50.9 Fever, unspecified; E78.00 Pure hypercholesterolemia, unspecified; I10 Essential (primary) hypertension; J44.9 Chronic obstructive pulmonary disease, unspecified; K21.9 Gastro-esophageal reflux disease without esophagitis; G30.9 Alzheimer's disease, unspecified; F02.80 Dementia in other diseases classified elsewhere, unspecified severity, without behavioral disturbance, psychotic disturbance, mood disturbance, and anxiety; Z88.0 Allergy status to penicillin; Z88.1 Allergy status to other antibiotic agents; Z79.82 Long term (current) use of aspirin; Z79.899 Other long term (current) drug therapy
CPT/HCPCS: 36415; 70450; 71045; 74177; 80053; 81001; 82465; 82947; 83718; 83721; 83735; 83880; 84484; 85025; 85610; 85730; 86140; 93005; 99285; A9270; J7030; Q9967; 99284

== ENCOUNTER 2021-08-07 16:32 | Emergency (ER) | payer OTHER ==
[2021-08-07] MEDS ORDERED: Heparin Sodium 5,000 Units/ML Vial IVPUSH ONE (18:36)
[2021-08-07] MEDS ORDERED: Iopamidol 755 Mg/ML 100 ML Bottle IVPUSH ONE (18:37)
[2021-08-07] MEDS ORDERED: Sodium Chloride 0.9% 10 ML Syringe FLUSH PRN (18:37)
--- NOTE | 2021-08-07 18:37 | EDM.PDOC ---
<Sterling,Nehemiah L - Last Filed: 08/07/21 19:04> ED HPI GENERAL MEDICAL PROBLEM - General Chief Complaint: Chest Pain Stated Complaint: FEVER CHEST PAIN Time Seen by Provider: 08/07/21 16:54 Source of Information: Reports: Patient, RN Notes Reviewed - History of Present Illness INITIAL COMMENTS - FREE TEXT/NARRATIVE: 85 yr old male comes in with fever, cough, chest pain off and on for 3 days. Mild chest discomfort at time of exam. Not short of breath at time of exam. Has had decreased appetite, fatigue, no vomiting or diarrhea. Pt has dementia, does not give a good hx, His answers most of the questions. chest Pain Score (Numeric/FACES): 7 - Related Data Allergies Allergy/AdvReac Type Severity Reaction Status Date / Time Penicillins Allergy Rash Verified 08/07/21 16:53 terazosin Allergy Other Verified 08/07/21 16:53 Home Meds: Home Meds Aspirin [Adult Low Dose Aspirin EC] 81 mg PO DAILY 07/23/19 [History] Budesonide/Formoterol [Symbicort 160-4.5 MCG] 2 inh IN BID 07/23/19 [History] Cholecalciferol (Vitamin D3) [Vitamin D3] 1,000 mg PO DAILY 07/23/19 [History] Donepezil HCl 10 mg PO DAILY 07/23/19 [History] Fluticasone Propionate [Flonase] 50 mcg RENEA DAILY 07/23/19 [History] Latanoprost [Xalatan 0.005% Ophth Soln] 1 drop EYEBOTH BEDTIME 07/23/19 [History] Levothyroxine 112 mcg PO DAILY 07/23/19 [History] Memantine [Namenda] 10 mg PO BID 07/23/19 [History] Mirabegron [Myrbetriq] 50 mg PO DAILY 07/23/19 [History] Omeprazole Magnesium [Prilosec Otc] 20 mg PO DAILY 07/23/19 [History] Simvastatin [Zocor] 40 mg PO BEDTIME 07/23/19 [History] atenoloL [Atenolol] 25 mg PO DAILY 07/23/19 [History] Albuterol [Ventolin HFA] 2 puff INH Q6H PRN 03/11/21 [History] Cefdinir [Omnicef] 300 mg PO BID #16 cap 03/11/21 [Rx] Tamsulosin [Tamsulosin 24 Hr] 0.4 mg PO DAILY 03/11/21 [History] Past Medical History Cardiovascular History: Reports: High Cholesterol, Hypertension Respiratory History: Reports: COPD Gastrointestinal History: Reports: GERD Neurological History: Reports: Alzheimers Disease Psychiatric History: Reports: Depression Endocrine/Metabolic History: Reports: Hypothyroidism Oncologic (Cancer) History: Reports: Prostate, Squamous Cell Carcinoma - Past Surgical History HEENT Surgical History: Reports: Adenoidectomy, Cataract Surgery, Oral Surgery, Tonsillectomy GI Surgical History: Reports: Hernia, Inguinal Musculoskeletal Surgical History: Reports: Knee Replacement Oncologic Surgical History: Reports: Other (See Below) Social & Family History - Tobacco Use Tobacco Use Status *Q: Former Tobacco User Used Tobacco, but Quit: Yes Month/Year Tobacco Last Used: 1989 - Caffeine Use Caffeine Use: Reports: None - Recreational Drug Use Recreational Drug Use: No - Living Situation & Occupation Living situation: Reports: , with Spouse Occupation: Retired ED ROS GENERAL - Review of Systems Review Of Systems: See Below Constitutional: Reports: Fever, Chills. Denies: Diaphoresis HEENT: Reports: No Symptoms Respiratory: Reports: Shortness of Breath, Cough Cardiovascular: Reports: Chest Pain Endocrine: Reports: Fatigue GI/Abdominal: Reports: Decreased Appetite. Denies: Abdominal Pain, Diarrhea, Vomiting Musculoskeletal: Denies: Shoulder Pain, Arm Pain Skin: Reports: No Symptoms Neurological: Reports: Dizziness Course - Re-Assessments/Exams Free Text/Narrative Re-Assessment/Exam: 08/07/21 19:01. WBC 5,460. CRP 2.2 Trop 0.44. BUN 19m creat, 1.3. D Dimer 3.36. CXR shows small area of atelectesis RL base, no obvious infiltrate or other acute abnormality. Covid screen still pending. 08/07/21 19:04At change of shift. Will transfer care to Dr Segovia. CTPA has been ordered Heparin 4,000 unit bolus and heparin drip 12 units/kg/hr ordered. Have discussed with spouse, she is agreeable to that. Departure - Departure Disposition: Still A Patient 30 Clinical Impression: Atypical chest pain, COVID-19 Referrals: PCP,Not In Area [Primary Care Provider] - Forms: ED Department Discharge Sepsis Event Note (ED) - Evaluation Sepsis Screening Result: No Definite Risk <Lynette Segovia - Last Filed: 08/08/21 07:54> ED EXAM, GENERAL - Physical Exam Exam: See Below Exam Limited By: Other (Dementia.) General Appearance: No Apparent Distress Head: Normocephalic Neck: Normal Inspection, Supple Respiratory/Chest: No Respiratory Distress, No Accessory Muscle Use, Rhonchi Cardiovascular: Regular Rate, Rhythm, No JVD GI/Abdominal: Normal Bowel Sounds, Soft, Non-Tender Back Exam: Normal Inspection Extremities: Normal Inspection, No Pedal Edema Neurological: Alert Psychiatric: Normal Affect Skin Exam: Warm, Dry #1 Interpretation Rhythm: NSR P-Wave: Enlarged QRS: Normal ST-T: Normal EKG Interpretation Comments: Patient is a very slight downslope to his ST segment seen mostly in V6 and lead I. He does have an inverted T wave in aVL. He also has left atrial enlargement. Course - Vital Signs Text/Narrative:: Patient's CTA which he got due to his very elevated D-dimer at 3.36 showed no pulmonary embolus but does show him to have a pneumonia consistent with Covid. Patient is positive for Covid. He does have elevated troponins the first being 0.438 and the second being 0.497. I feel these are secondary to demand ischemia from his pneumonia. Patient CRP was 2.2 his BNP was 677 his lactic acid initially was 2.6 and his repeat was 2.2. His white blood cell count is 5.5 with a hemoglobin of 17.1. I have stopped his heparin drip and have started him on remdesivir. Since we have no beds all the surrounding hospitals are also full we will board him in the department till the morning and then call our hospitalist for hopeful admission. Patient is currently satting 100% on room air while sleeping. I feel that his lab work is improved he may be able to be discharged home. Patient will be turned over to Dr. Mendez secondary to change in shift. <Lalo Mendez - Last Filed: 08/08/21 12:07> Course - Vital Signs Last Recorded V/S: Last Vital Signs Temp 36.2 C 08/08/21 07:15 Pulse 62 08/08/21 07:15 Resp 12 08/08/21 07:15 BP 172/80 H 08/08/21 07:15 Pulse Ox 98 08/08/21 07:15 - Orders/Labs/Meds Orders: Active Orders 24 hr Category Date Time Status Heparin Sodium/D5W [Heparin 25,000 Units in D5W 500 ML] Med 08/07/21 18:45 Active 25,000 units in 500 ml IV TITRATE Rivaroxaban [Xarelto] Med 08/09/21 12:01 Once 10 mg PO ONETIME ONE Sodium Chloride 0.9% [Normal Saline] 100 ml Med 08/07/21 18:45 Active IV ASDIRECTED Sodium Chloride 0.9% [Saline Flush] Med 08/07/21 18:37 Active 10 ml FLUSH ONETIME PRN Medication Orders Sodium Chloride (Normal Saline) 100 mls @ 75 mls/hr IV ASDIRECTED CHASIDY Last Admin: 08/07/21 19:08 Dose: 75 mls/hr Documented by: KOKI Heparin Sodium/Dextrose (Heparin 25,000 Units In D5w 500 Ml) 25,000 units in 500 mls @ 19.051 mls/hr IV TITRATE CHASIDY; Protocol Last Admin: 08/07/21 19:18 Dose: 12 units/kg/hr, 19.051 mls/hr Documented by: ELVIS Cosigned by: JUANITA Rivaroxaban (Rivaroxaban 10 Mg Tab) 10 mg PO ONETIME ONE Stop: 08/09/21 12:02 Sodium Chloride (Sodium Chloride 0.9% 10 Ml Syringe) 10 ml FLUSH ONETIME PRN PRN Reason: IV FLUSH Last Admin: 08/07/21 19:07 Dose: 10 ml Documented by: KOKI Labs: Laboratory Tests 08/07/21 08/07/21 08/07/21 Range/Units 17:00 17:10 17:10 WBC 5.46 (4.23-9.07) K/mm3 RBC 5.81 (4.63-6.08) M/mm3 Hgb 17.1 D (13.7-17.5) gm/dl Hct 53.0 H (40.1-51.0) % MCV 91.2 (79.0-92.2) fl MCH 29.4 (25.7-32.2) pg MCHC 32.3 (32.2-35.5) g/dl RDW Std Deviation 43.5 (35.1-43.9) fL Plt Count 138 L D (163-337) K/mm3 MPV 10.3 (9.4-12.3) fl Neut % (Auto) 61.1 (34.0-67.9) % Lymph % (Auto) 21.2 L (21.8-53.1) % [place] % (Auto) 16.8 H (5.3-12.2) % Eos % (Auto) 0 L (0.8-7.0) Baso % (Auto) 0.2 (0.1-1.2) % Neut # (Auto) 3.33 (1.78-5.38) K/mm3 Lymph # (Auto) 1.16 L (1.32-3.57) K/mm3 [place] # (Auto) 0.92 H (0.30-0.82) K/mm3 Eos # (Auto) 0.00 L (0.04-0.54) K/mm3 Baso # (Auto) 0.01 (0.01-0.08) K/mm3 Neutrophils % (Manual) (40-60) % Band Neutrophils % (0-10) % Lymphocytes % (Manual) (20-40) % Atypical Lymphs % % Monocytes % (Manual) (2-10) % Eosinophils % (Manual) (0.8-7.0) % Basophils % (Manual) (0.2-1.2) Toxic Granulation Platelet Estimate Plt Morphology Comment RBC Morph Comment D-Dimer, Quantitative (0.19-0.50) mg/L Sodium (136-145) mEq/L Potassium (3.5-5.1) mEq/L Chloride (98-107) mEq/L Carbon Dioxide (21-32) mEq/L Anion Gap (5-15) BUN (7-18) mg/dL Creatinine (0.7-1.3) mg/dL Est Cr Clr Drug Dosing mL/min Estimated GFR (MDRD) (>60) mL/min BUN/Creatinine Ratio (14-18) Glucose (70-99) mg/dL Lactic Acid (0.4-2.0) mmol/L Calcium (8.5-10.1) mg/dL Total Bilirubin (0.2-1.0) mg/dL AST (15-37) U/L ALT (16-63) U/L Alkaline Phosphatase (46-116) U/L Troponin I (0.00-0.056) ng/mL C-Reactive Protein 2.2 H* (<1.0) mg/dL NT-Pro-B Natriuret Pep (0-450) pg/mL Total Protein (6.4-8.2) g/dl Albumin (3.4-5.0) g/dl Globulin gm/dL Albumin/Globulin Ratio (1-2) SARS-CoV-2 RNA (JENNIFER) Positive H (NEGATIVE) 08/07/21 08/07/21 08/07/21 Range/Units 17:10 17:10 17:18 WBC (4.23-9.07) K/mm3 RBC (4.63-6.08) M/mm3 Hgb (13.7-17.5) gm/dl Hct (40.1-51.0) % MCV (79.0-92.2) fl MCH (25.7-32.2) pg MCHC (32.2-35.5) g/dl RDW Std Deviation (35.1-43.9) fL Plt Count (163-337) K/mm3 MPV (9.4-12.3) fl Neut % (Auto) (34.0-67.9) % Lymph % (Auto) (21.8-53.1) % [place] % (Auto) (5.3-12.2) % Eos % (Auto) (0.8-7.0) Baso % (Auto) (0.1-1.2) % Neut # (Auto) (1.78-5.38) K/mm3 Lymph # (Auto) (1.32-3.57) K/mm3 [place] # (Auto) (0.30-0.82) K/mm3 Eos # (Auto) (0.04-0.54) K/mm3 Baso # (Auto) (0.01-0.08) K/mm3 Neutrophils % (Manual) (40-60) % Band Neutrophils % (0-10) % Lymphocytes % (Manual) (20-40) % Atypical Lymphs % % Monocytes % (Manual) (2-10) % Eosinophils % (Manual) (0.8-7.0) % Basophils % (Manual) (0.2-1.2) Toxic Granulation Platelet Estimate Plt Morphology Comment RBC Morph Comment D-Dimer, Quantitative 3.36 H (0.19-0.50) mg/L Sodium 139 (136-145) mEq/L Potassium 4.6 (3.5-5.1) mEq/L Chloride 102 (98-107) mEq/L Carbon Dioxide 28 (21-32) mEq/L Anion Gap 13.6 (5-15) BUN 19 H (7-18) mg/dL Creatinine 1.3 (0.7-1.3) mg/dL Est Cr Clr Drug Dosing 43.44 mL/min Estimated GFR (MDRD) 52 (>60) mL/min BUN/Creatinine Ratio 14.6 (14-18) Glucose 123 H (70-99) mg/dL Lactic Acid (0.4-2.0) mmol/L Calcium 8.4 L (8.5-10.1) mg/dL Total Bilirubin 0.5 (0.2-1.0) mg/dL AST 31 (15-37) U/L ALT 21 (16-63) U/L Alkaline Phosphatase 75 (46-116) U/L Troponin I 0.438 H* (0.00-0.056) ng/mL C-Reactive Protein (<1.0) mg/dL NT-Pro-B Natriuret Pep 677 H (0-450) pg/mL Total Protein 6.4 (6.4-8.2) g/dl Albumin 3.3 L (3.4-5.0) g/dl Globulin 3.1 gm/dL Albumin/Globulin Ratio 1.1 (1-2) SARS-CoV-2 RNA (JENNIFER) (NEGATIVE) 08/07/21 08/07/21 08/08/21 Range/Units 20:27 20:27 07:10 WBC 4.20 L (4.23-9.07) K/mm3 RBC 5.23 (4.63-6.08) M/mm3 Hgb 15.8 (13.7-17.5) gm/dl Hct 47.8 (40.1-51.0) % MCV 91.4 (79.0-92.2) fl MCH 30.2 (25.7-32.2) pg MCHC 33.1 (32.2-35.5) g/dl RDW Std Deviation 43.6 (35.1-43.9) fL Plt Count 110 L (163-337) K/mm3 MPV 9.8 (9.4-12.3) fl Neut % (Auto) (34.0-67.9) % Lymph % (Auto) (21.8-53.1) % [place] % (Auto) (5.3-12.2) % Eos % (Auto) (0.8-7.0) Baso % (Auto) (0.1-1.2) % Neut # (Auto) (1.78-5.38) K/mm3 Lymph # (Auto) (1.32-3.57) K/mm3 [place] # (Auto) (0.30-0.82) K/mm3 Eos # (Auto) (0.04-0.54) K/mm3 Baso # (Auto) (0.01-0.08) K/mm3 Neutrophils % (Manual) 65 H (40-60) % Band Neutrophils % 3 (0-10) % Lymphocytes % (Manual) 21 (20-40) % Atypical Lymphs % 3 % Monocytes % (Manual) 8 (2-10) % Eosinophils % (Manual) 0 L (0.8-7.0) % Basophils % (Manual) 0 L (0.2-1.2) Toxic Granulation 1+ slight Platelet Estimate Decreased Plt Morphology Comment Normal RBC Morph Comment Normal D-Dimer, Quantitative (0.19-0.50) mg/L Sodium (136-145) mEq/L Potassium (3.5-5.1) mEq/L Chloride (98-107) mEq/L Carbon Dioxide (21-32) mEq/L Anion Gap (5-15) BUN (7-18) mg/dL Creatinine (0.7-1.3) mg/dL Est Cr Clr Drug Dosing mL/min Estimated GFR (MDRD) (>60) mL/min BUN/Creatinine Ratio (14-18) Glucose (70-99) mg/dL Lactic Acid 2.6 H* (0.4-2.0) mmol/L Calcium (8.5-10.1) mg/dL Total Bilirubin (0.2-1.0) mg/dL AST (15-37) U/L ALT (16-63) U/L Alkaline Phosphatase (46-116) U/L Troponin I 0.497 H* (0.00-0.056) ng/mL C-Reactive Protein (<1.0) mg/dL NT-Pro-B Natriuret Pep (0-450) pg/mL Total Protein (6.4-8.2) g/dl Albumin (3.4-5.0) g/dl Globulin gm/dL Albumin/Globulin Ratio (1-2) SARS-CoV-2 RNA (JENNIFER) (NEGATIVE) 08/08/21 08/08/21 Range/Units 07:10 07:10 WBC (4.23-9.07) K/mm3 RBC (4.63-6.08) M/mm3 Hgb (13.7-17.5) gm/dl Hct (40.1-51.0) % MCV (79.0-92.2) fl MCH (25.7-32.2) pg MCHC (32.2-35.5) g/dl RDW Std Deviation (35.1-43.9) fL Plt Count (163-337) K/mm3 MPV (9.4-12.3) fl Neut % (Auto) (34.0-67.9) % Lymph % (Auto) (21.8-53.1) % [place] % (Auto) (5.3-12.2) % Eos % (Auto) (0.8-7.0) Baso % (Auto) (0.1-1.2) % Neut # (Auto) (1.78-5.38) K/mm3 Lymph # (Auto) (1.32-3.57) K/mm3 [place] # (Auto) (0.30-0.82) K/mm3 Eos # (Auto) (0.04-0.54) K/mm3 Baso # (Auto) (0.01-0.08) K/mm3 Neutrophils % (Manual) (40-60) % Band Neutrophils % (0-10) % Lymphocytes % (Manual) (20-40) % Atypical Lymphs % % Monocytes % (Manual) (2-10) % Eosinophils % (Manual) (0.8-7.0) % Basophils % (Manual) (0.2-1.2) Toxic Granulation Platelet Estimate Plt Morphology Comment RBC Morph Comment D-Dimer, Quantitative (0.19-0.50) mg/L Sodium (136-145) mEq/L Potassium (3.5-5.1) mEq/L Chloride (98-107) mEq/L Carbon Dioxide (21-32) mEq/L Anion Gap (5-15) BUN (7-18) mg/dL Creatinine (0.7-1.3) mg/dL Est Cr Clr Drug Dosing mL/min Estimated GFR (MDRD) (>60) mL/min BUN/Creatinine Ratio (14-18) Glucose (70-99) mg/dL Lactic Acid 1.8 (0.4-2.0) mmol/L Calcium (8.5-10.1) mg/dL Total Bilirubin (0.2-1.0) mg/dL AST (15-37) U/L ALT (16-63) U/L Alkaline Phosphatase (46-116) U/L Troponin I 0.422 H* (0.00-0.056) ng/mL C-Reactive Protein (<1.0) mg/dL NT-Pro-B Natriuret Pep (0-450) pg/mL Total Protein (6.4-8.2) g/dl Albumin (3.4-5.0) g/dl Globulin gm/dL Albumin/Globulin Ratio (1-2) SARS-CoV-2 RNA (JENNIFER) (NEGATIVE) Meds: Medications Generic Name Dose Route Start Last Admin Trade Name Freq PRN Reason Stop Dose Admin Sodium Chloride 100 mls @ 75 mls/hr 08/07/21 18:45 08/07/21 19:08 Normal Saline IV 75 mls/hr ASDIRECTED CHASIDY Administration Heparin Sodium/Dextrose 25,000 units in 500 mls @ 19.051 mls/hr 08/07/21 18:45 08/07/21 19:18 Heparin 25,000 Units In D5w 500 Ml IV 12 units/kg/hr TITRATE CHASIDY 19.051 mls/hr Administration Protocol 12 UNITS/KG/HR Rivaroxaban 10 mg 08/09/21 12:01 Rivaroxaban 10 Mg Tab PO 08/09/21 12:02 ONETIME ONE Sodium Chloride 10 ml 08/07/21 18:37 08/07/21 19:07 Sodium Chloride 0.9% 10 Ml Syringe FLUSH 10 ml ONETIME PRN Administration IV FLUSH Discontinued Medications Generic Name Dose Route Start Last Admin Trade Name Rafael PRN Reason Stop Dose Admin Heparin Sodium (Porcine) 4,000 units 08/07/21 18:36 08/07/21 19:19 Heparin Sodium 5,000 Units/Ml Vial IVPUSH 08/07/21 18:37 4,000 units .BOLUS ONE Administration Remdesivir 200 mg/ Sodium 250 mls @ 250 mls/hr 08/07/21 19:57 08/07/21 21:39 Chloride IV 08/07/21 19:58 250 mls/hr ONETIME ONE Administration Iopamidol 100 ml 08/07/21 18:37 08/07/21 19:07 Iopamidol 755 Mg/Ml 100 Ml Bottle IVPUSH 08/07/21 18:38 100 ml ONETIME ONE Administration Departure - Departure Time of Disposition: 12:02 Preliminary Cause of *Q: Cardiac Arrest Sepsis Event Note (ED) - Focused Exam Vital Signs: Vital Signs Temp Pulse Resp BP Pulse Ox 08/08/21 07:15 36.2 C 62 12 172/80 H 98 - My Orders Last 24 Hours: My Active Orders 08/09/21 12:01 Rivaroxaban [Xarelto] 10 mg PO ONETIME ONE - Assessment/Plan Last 24 Hours: My Active Orders 08/09/21 12:01 Rivaroxaban [Xarelto] 10 mg PO ONETIME ONE Assessment:: Patient is an 85-year-old male presenting to the emergency room with chest pain. He also had fatigue, cough, shortness of breath. Patient did test positive for COVID-19. Oxygen levels maintained within normal levels without respiratory distress. Patient had serial troponins performed prior to my assuming care of the patient. Troponins mildly elevated and are trending downward. Other inflammatory markers are elevated including CRP and D-dimer. Patient did not have evidence of pulmonary embolism. At this point, case was discussed with hospitalist, Dr. Ryder, who recommended outpatient treatment with anticoagulation for several weeks given patient's elevated inflammatory markers. Likely this is all secondary to COVID-19 and not secondary to acute HI. Patient has had normal EKG and feels better while being in the emergency room. Patient will be started on Xarelto and given outpatient follow-up. All questions were addressed and answered. Patient agrees with plan of care. Family updated on plan by nursing staff.
[2021-08-07] MEDS ORDERED: Sodium Chloride 0.9% 100 ML IV SCH (18:45)
[2021-08-07] MEDS ORDERED: Heparin Sodium/D5W 25,000 UNITS/500 ML BAG IV SCH (18:45)
[2021-08-07] MEDS ORDERED: REMDESIVIR 200 MG in Sodium Chloride 0.9% 250 ML IV ONE (19:57)
--- NOTE | 2021-08-08 06:41 | CR ---
Chest: Frontal view of the chest was obtained. Comparison: Prior chest x-ray of 03/11/21. Heart size is normal. Tortuous thoracic aorta is seen. Slight atelectasis is noted within the right lung base. Lungs otherwise are clear. Bony structures show nothing acute. Impression: 1. Stable scarring within the right lung base. 2. Nothing acute is otherwise seen on frontal chest x-ray. Diagnostic code #2
--- NOTE | 2021-08-08 06:46 | CT ---
CT chest Technique: Multiple axial sections through the chest were obtained. Intravenous contrast was utilized. Study has been performed as a pulmonary angiogram protocol. Comparison: No prior chest CT is available, prior chest x-ray performed earlier on the same day (5:48 PM). Findings: Pulmonary arteries are well opacified. No filling defects are seen to indicate pulmonary embolism. Thoracic aorta shows atherosclerotic change. No aneurysm is seen. Mediastinum shows no adenopathy. No axillary adenopathy is seen. Very minimal pericardial effusion is seen which is believed to be incidental. Slight atheromatous change is partially seen within the coronary vessels. Visualized abdominal structures show prior cholecystectomy. Small cyst is noted within the left kidney measuring 1.1 cm. Lung window settings were reviewed which show scattered emphysematous change. Mild areas of increased density are seen within the lower lungs as well as within the upper lungs most likely representing fibrosis and mild atelectasis. Impression: 1. No findings of pulmonary embolism. 2. Emphysematous change is seen. 3. Patchy areas of increased density within the upper and lower lungs which are most likely due to areas of fibrosis and mild atelectasis. Diagnostic code #2 I agree with preliminary report from [facility], finalized on 08/07/21, 8:24 PM [employer], code 1
[2021-08-08] MEDS ORDERED: Rivaroxaban 10 MG Tab PO ONE (13:25)
[2021-08-09] MEDS ORDERED: Rivaroxaban 10 MG Tab PO ONE (12:01)
== END 2021-08-08 13:54 | disposition still patient (30) ==
LOC: JD.ED 16:32
DX: U07.1 COVID-19 (principal); R07.89 Other chest pain; E78.00 Pure hypercholesterolemia, unspecified; I10 Essential (primary) hypertension; J44.9 Chronic obstructive pulmonary disease, unspecified; K21.9 Gastro-esophageal reflux disease without esophagitis; E03.9 Hypothyroidism, unspecified; G30.9 Alzheimer's disease, unspecified; F02.80 Dementia in other diseases classified elsewhere, unspecified severity, without behavioral disturbance, psychotic disturbance, mood disturbance, and anxiety; Z87.891 Personal history of nicotine dependence; Z88.0 Allergy status to penicillin; Z88.1 Allergy status to other antibiotic agents; Z79.82 Long term (current) use of aspirin; Z79.899 Other long term (current) drug therapy
CPT/HCPCS: 36415; 71045; 71275; 80053; 83605; 83880; 84484; 85007; 85025; 85027; 85379; 86140; 87635; 93005; 96365; 96366; 99285; A9270; J1644; J7050; Q9967; U0002

== ENCOUNTER 2022-03-24 09:05 | Emergency (ER) | payer OTHER ==
[2022-03-24] MEDS ORDERED: Sodium Chloride 0.9% 10 ML Syringe FLUSH PRN (09:38)
[2022-03-24] MEDS ORDERED: Albuterol/Ipratropium 3.0-0.5 MG/3 ML Neb Soln NEB PRN (09:38)
[2022-03-24 10:54] LABS: ESTIMATED GFR 65 mL/min (>60)
== END 2022-03-24 11:50 | disposition home or self-care (01) ==
LOC: JD.ED 09:05
DX: J20.9 Acute bronchitis, unspecified (principal); J44.1 Chronic obstructive pulmonary disease with (acute) exacerbation; I10 Essential (primary) hypertension; E78.00 Pure hypercholesterolemia, unspecified; K21.9 Gastro-esophageal reflux disease without esophagitis; E03.9 Hypothyroidism, unspecified; F32.A Depression, unspecified; G30.9 Alzheimer's disease, unspecified; Z79.899 Other long term (current) drug therapy; Z88.0 Allergy status to penicillin; Z88.8 Allergy status to other drugs, medicaments and biological substances
CPT/HCPCS: 36415; 71045; 80053; 83735; 83880; 85025; 85610; 86140; 93005; 94640; 99284; J3490; 93010; J7620-GY

== ENCOUNTER 2024-07-13 15:14 | Emergency (ER) | payer OTHER ==
[2024-07-13] MEDS ORDERED: Sodium Chloride 0.9% 10 ML Syringe FLUSH PRN ×2 (15:35→15:52)
[2024-07-13 16:16] LABS: BASOPHILS ABSOLUTE AUTO 0.1 K/mm3 (0.0-0.2); BASOPHILS PERCENT AUTO 0.7 % (0.0-1.0); EOSINOPHILS ABSOLUTE AUTO 0.1 K/mm3 (0.0-0.4); HEMATOCRIT 45.1 % (42.0-52.0); HEMOGLOBIN 15.4 gm/dl (14.0-18.0); IMMATURE GRAN ABSOLUTE AUTO 0.03 K/mm3 (0.00-0.05); IMMATURE GRAN PERCENT AUTO 0.3 % (0.0-0.4); LYMPHOCYTES ABSOLUTE AUTO 1.2 K/mm3 (1.0-4.8); LYMPHOCYTES PERCENT AUTO 13.2 % (24.0-44.0); MEAN CORPUSCULAR HEMOGLOBIN 31.1 pg (28.0-32.0); MEAN CORPUSCULAR HGB CONC 34.1 g/dl (32.0-36.0); MEAN CORPUSCULAR VOLUME 91.1 fl (83.0-99.0); MEAN PLATELET VOLUME 9.5 fl (9.4-12.4); MONOCYTES ABSOLUTE AUTO 0.5 K/mm3 (0.0-0.8); MONOCYTES PERCENT AUTO 5.3 % (0.0-8.0); NEUTROPHILS ABSOLUTE AUTO 7.3 K/mm3 (1.8-7.7); NEUTROPHILS PERCENT AUTO 79.5 % (41.0-71.0); PLATELET COUNT,PLT 207 K/mm3 (150-400); RED BLOOD CELL COUNT 4.95 M/mm3 (4.52-5.90); WHITE BLOOD CELL COUNT,WBC 9.17 K/mm3 (3.9-11.3)
[2024-07-13 16:41] LABS: A/G RATIO 1.2 (1-2); ALBUMIN 3.5 g/dl (3.4-5.0); ANION GAP 11.4 (5-15); BILIRUBIN TOTAL 0.7 mg/dL (0.2-1.0); CALCIUM 9.4 mg/dL (8.5-10.1); CREATININE 1.3 mg/dL (0.7-1.3); EST CRCL DRUG DOSING (CG) 34.76 mL/min; MAGNESIUM 1.6 mg/dL (1.8-2.4); PROTEIN TOTAL,TP 6.5 g/dl (6.4-8.2)
[2024-07-13 16:57] LABS: POTASSIUM,K 4.4 mEq/L (3.5-5.1)
[2024-07-13] MEDS: Sodium Chloride 0.9% 500 ML IV ONE (17:03)
[2024-07-13] MEDS: Iopamidol 612 MG/ML 100 ML Bottle IVPUSH ONE (17:04)
[2024-07-13 19:13] LABS: APPEARANCE,URINE CLEAR (Clear); BILIRUBIN,URINE NEGATIVE (Negative); COLOR,URINE YELLOW (Yellow); GLUCOSE,URINE NEGATIVE (Negative); KETONES,URINE NEGATIVE (Negative); LEUKOCYTE ESTERASE,URINE NEGATIVE (Negative); NITRITE,URINE NEGATIVE (Negative); OCCULT BLOOD,URINE NEGATIVE (Negative); PROTEIN,URINE NEGATIVE (Negative)
[2024-07-13] MEDS: Magnesium Oxide 400 MG Tab PO ONE (20:37)
[2024-07-13] MEDS: Glycerin Adult 2 GM Supp RECTAL ONE (20:39)
[2024-07-13] MEDS: Magnesium Oxide 400 MG Tab ONE (20:41)
[2024-07-13] MEDS: Magnesium Citrate Solution 296 ML Bottle PO ONE (21:22)
== END 2024-07-13 21:30 | disposition home or self-care (01) ==
LOC: JD.ED 15:14
DX: K59.00 Constipation, unspecified (principal); R10.31 Right lower quadrant pain; R10.32 Left lower quadrant pain; E78.00 Pure hypercholesterolemia, unspecified; I10 Essential (primary) hypertension; J44.9 Chronic obstructive pulmonary disease, unspecified; K21.9 Gastro-esophageal reflux disease without esophagitis; E03.9 Hypothyroidism, unspecified; Z86.16 Personal history of COVID-19; Z79.02 Long term (current) use of antithrombotics/antiplatelets; Z79.82 Long term (current) use of aspirin; Z79.899 Other long term (current) drug therapy; Z88.0 Allergy status to penicillin; Z88.8 Allergy status to other drugs, medicaments and biological substances
CPT/HCPCS: 36415; 74177; 80053; 81003; 83690; 83735; 85025; 93005; 99284; A9270; J7030; Q9967